=== PATIENT | male | born 1965 | race Caucasian/White ===

== ENCOUNTER 2023-06-23 13:50 | Emergency (ER) | payer BC ==
[~2023-06-23] VITALS: Ht 193 cm; Wt 91.2 kg
[2023-06-23 14:03] VITALS: TEMP 98.5
[2023-06-23] MEDS ORDERED: LABETALOL HCL IV 100MG VIAL ONE (14:58)
[2023-06-23] MEDS ORDERED: ASPIRIN EC 81 MG TABLET.DR PO ONE (14:59)
[2023-06-23] MEDS: ASPIRIN EC 81 MG TABLET.DR PO ONE (15:00)
[2023-06-23] MEDS: LABETALOL HCL IV 100MG VIAL IV ONE (15:04)
[2023-06-23 15:10] LABS: BASOPHILS % (AUTO) 0.2 % (0.0-2.0); EOSINOPHILS % (AUTO) 0.5 % (0.0-6.0); HEMATOCRIT 49 % (39-51); HEMOGLOBIN 16.8 g/dL (13.5-17.5); LYMPHOCYTES # (AUTO) 1.1 K/uL (0.8-4.8); LYMPHOCYTES % (AUTO) 23.2 % (20.0-44.0); MEAN CORPUSCULAR HEMOGLOBIN 33 PG (26.0-33.0); MEAN CORPUSCULAR HGB CONC 34 g/dl (31.0-36.0); MEAN CORPUSCULAR VOLUME 95 fL (80-96); MONOCYTES # (AUTO) 0.4 K/uL (0.1-1.30); MONOCYTES % (AUTO) 8.8 % (2.0-12.0); NEUTROPHILS # (AUTO) 3.2 K/uL (1.8-8.9); NEUTROPHILS % (AUTO) 67.3 % (43.0-81.0); PLATELET COUNT (AUTO) 209 K/uL (150-450); RED BLOOD CELL COUNT(AUTO) 5.17 MIL/uL (4.5-6.0); RED CELL DISTRIBUTION WIDTH 13.7 % (11.5-15.0); WHITE BLOOD COUNT (AUTO) 4.8 K/uL (4.3-11.0)
[2023-06-23 15:20] LABS: CALCIUM, SERUM 9.5 mg/dL (8.5-10.1); CARBON DIOXIDE 29 mmol/L (21-32); CHLORIDE 100 mmol/L (98-107); CREATININE 0.7 mg/dL (0.6-1.3); GLUCOSE 169 mg/dL (74-106); POTASSIUM 3.8 mmol/L (3.5-5.1); SODIUM SERUM 135 mmol/L (136-145); UREA NITROGEN, BLOOD 15 mg/dL (7-18)
[2023-06-23] MEDS ORDERED: METOPROLOL TARTRATE INJ 5 MG/5 ML AMPUL ONE ×3 (15:51→20:05)
[2023-06-23] MEDS ORDERED: NITROGLYCERIN 0.4 MG/TAB BOTTLE ONE (15:51)
[2023-06-23] MEDS ORDERED: IOHEXOL-350 100 ML VIAL IV ONE (15:51)
[2023-06-23] MEDS ORDERED: CT SWABBABLE VALVE TRANS SET 1 EA INFUS.SET MC ONE (15:52)
[2023-06-23] MEDS ORDERED: IV NS 0.9% 250 ML IV ONE (15:52)
[2023-06-23] MEDS: METOPROLOL TARTRATE INJ 5 MG/5 ML AMPUL IVP PRN (16:00)
[2023-06-23] MEDS: NITROGLYCERIN 0.4 MG/TAB BOTTLE SL ONE (16:15)
[2023-06-23] MEDS: METOPROLOL TARTRATE 50 MG TABLET PO SCH (17:38)
[2023-06-23 19:19] VITALS: O2SAT 99
[2023-06-23] MEDS ORDERED: HEPARIN INFUSION/D5W 500 ML IV ONE ×2 (19:30→19:44)
[2023-06-23] MEDS ORDERED: HEPARIN SODIUM, PORCINE 5000 UNITS/1 ML VIAL ONE (19:34)
[2023-06-23] MEDS: HEPARIN SODIUM, PORCINE 5000 UNITS/1 ML VIAL IV ONE (19:36)
[2023-06-23 19:45] LABS: PROTHROMBIN TIME 10.3 SECS (9.2-11.1)
[2023-06-23 20:08] VITALS: BP 103/66
[2023-06-23] MEDS ORDERED: ENOXAPARIN SODIUM 100 MG/ML DISP.SYRIN SQ ONE (22:30)
== END 2023-06-24 00:27 | disposition short-term general hospital (02) ==
LOC: ER 13:50
DX: I21.4 Non-ST elevation (NSTEMI) myocardial infarction (principal); I10 Essential (primary) hypertension; Z20.822 Contact with and (suspected) exposure to COVID-19; Z60.2 Problems related to living alone
CPT/HCPCS: 99291; 96374; 75574; 71045; 96375; 87426; 85025; 80048; 85610; 36415; 84484 ×2; 93005 ×2; J1644 ×2; J3490 ×3; J7050; A4223; Q9967